=== PATIENT | female | born 1995 | race Two or more races ===

== ENCOUNTER 2023-11-04 22:21 | Emergency (ER) | payer OTHER, SELFPAY ==
[~2023-11-04] VITALS: Ht 165.1 cm; Wt 104.5 kg
[2023-11-04 22:30] VITALS: BP 153/133; PULSE 108
[2023-11-04] MEDS: DexAMETHasone SOD PHOS 10MG/1ML VIAL INJ IM ONE (22:58)
[2023-11-04] MEDS: ALBUTEROL SULF 2.5 MG/0.5ML(0.5%) NEB SOLN NEB ONE (23:00)
[2023-11-04] MEDS: IPRATROPIUM BROM 0.5 MG/2.5ML INH SOL NEB ONE (23:00)
[2023-11-04 23:02] VITALS: RESP 22; O2SAT 98
== END 2023-11-04 23:00 | disposition left against medical advice (07) ==
LOC: ER 22:21
DX: J45.901 Unspecified asthma with (acute) exacerbation (principal); Z53.21 Procedure and treatment not carried out due to patient leaving prior to being seen by health care provider
CPT/HCPCS: 94640; 96372; J1100